=== PATIENT | male | born 1960 | race Caucasian/White ===

== ENCOUNTER 2021-01-22 21:53 | Emergency (ER) | payer BC ==
[~2021-01-22] VITALS: Ht 170.2 cm; Wt 90.7 kg
[~2021-01-22 21:53] MED LIST: AUGMENTIN 875-1 EACH PO; BACTRIM DS TAB1 EACH PO; COZAAR100 MG PO; GENTAK3.5 GM OD; KEFLEX500 MG PO; MULTI-DAY VITA1 EACH PO; NORCO 7.5-3251 EACH PO; ULTRAM50 MG PO
[2021-01-22] MEDS ORDERED: ZOFRAN4 MG PO (22:46)
== END 2021-01-23 00:37 | disposition home or self-care (01) ==
LOC: ED 21:53
DX: U07.1 COVID-19 (principal); R79.89 Other specified abnormal findings of blood chemistry; I10 Essential (primary) hypertension; M19.022 Primary osteoarthritis, left elbow; M17.12 Unilateral primary osteoarthritis, left knee; Z79.899 Other long term (current) drug therapy
CPT/HCPCS: 80053; 85025; 99283-25; A9270; M0243; Q0244